=== PATIENT | male | born 1935 ===

== ENCOUNTER 2017-02-12 13:13 | Outpatient (CLI) | payer MEDICARE, OTHER ==
--- NOTE | 2017-02-12 15:38 | Diagnostic Imaging Report ---
Indication: Cough Comparison: 10/19/14 2 views of the chest obtained. There is mild left basal atelectasis. Aorta is ectatic and calcified. Heart size is normal. Cervical fusion hardware noted. Bones are osteopenic. Impression: Mild left basal atelectasis
== END 2017-02-12 15:13 | disposition home or self-care (01) ==
LOC: RAD 13:13
DX: R05 Cough (principal); I10 Essential (primary) hypertension; J98.11 Atelectasis; M85.80 Other specified disorders of bone density and structure, unspecified site
CPT/HCPCS: 71020